=== PATIENT | female | born 1990 | race Caucasian/White ===

== ENCOUNTER 2019-12-10 13:30 | Observation (INO) | payer MEDICAID, OTHER ==
[~2019-12-10] VITALS: Ht 144.8 cm; Wt 62.6 kg
[2019-12-10] MEDS ORDERED: PREN-217 PO (13:37)
[2019-12-10 14:14] VITALS: BP 135/74
[2019-12-10 15:05] LABS: APPEARANCE,URINE CLOUDY (CLEAR); BILIRUBIN,URINE NEGATIVE (NEGATIVE); GLUCOSE, URINE (UA) NEGATIVE (NEGATIVE); KETONES,URINE NEGATIVE (NEGATIVE); LEUKOCYTE ESTERASE ,URINE NEGATIVE (NEGATIVE); NITRATE,URINE NEGATIVE (NEGATIVE); OCCULT BLOOD,URINE NEGATIVE (NEGATIVE); PH,URINE 6.5 (5.0-8.0); PROTEIN,URINE TRACE (NEGATIVE); UROBILINOGEN,URINE 0.2 mg/dL (<=1.0)
== END 2019-12-10 16:55 | disposition home or self-care (01) ==
LOC: 4S 13:30
PROVIDERS: ADMIT Obstetrics & Gynecology; ATTEND Obstetrics & Gynecology
DX: Z03.818 Encounter for observation for suspected exposure to other biological agents ruled out (principal); O99.89 Other specified diseases and conditions complicating pregnancy, childbirth and the puerperium; M54.9 Dorsalgia, unspecified; Z3A.23 23 weeks gestation of pregnancy; Z98.891 History of uterine scar from previous surgery
CPT/HCPCS: 59025; 76811; 81003; 87635; G0378

== ENCOUNTER 2020-06-28 11:52 | Emergency (ER) | payer OTHER ==
[~2020-06-28 11:52] MED LIST: PREN-217 PO
== END 2020-06-28 12:12 | disposition left against medical advice (07) ==
LOC: EMS 11:57
DX: Z00.00 Encounter for general adult medical examination without abnormal findings (principal); Z53.21 Procedure and treatment not carried out due to patient leaving prior to being seen by health care provider